=== PATIENT | male | born 1995 | race Two or more races ===

== ENCOUNTER 2020-05-11 19:29 | Emergency (ER) | payer OTHER ==
[~2020-05-11] VITALS: Ht 177.8 cm; Wt 75.0 kg
[2020-05-11 19:57] VITALS: BP 151/80
[2020-05-11] MEDS ORDERED: LIDOCAINE 2% 20 ML VIAL. IJ ONE (20:15)
[2020-05-11] MEDS ORDERED: DIPH,PERTUSS(ACELL),TET VAC/PF 0.5 ML SYRINGE. VAX IM ONE (20:15)
[2020-05-11] MEDS ORDERED: BACITRACIN ZINC TOPICAL OINT PACKET. TP ONE (20:30)
[2020-05-11] MEDS ORDERED: CEPH-281 PO (20:30)
--- NOTE | 2020-05-11 20:30 | PHYS DOC ---
Past History Past Medical History: No Pertinent History Past Surgical History: No Surgical History Alcohol Use: Occasionally General Adult EDM: Chief Complaint: LACERATION/AVULSION HPI: HPI: Patient is a 25 year old male who presents for evaluation of a cut just lateral to his left eye. Patient states that he was at work when he was hit in the back of the head with a bar. That caused his face to move forward and he was wearing safety glasses. His skin was cut where his safety glasses caught his skin. There is no other reported injuries. He has no actual eyeball injury itself. He has normal vision to the affected eye. Bleeding controlled prior to arrival. There is a small star-shaped laceration to that site. Patient's tetanus shot is not up-to-date. Patient was very briefly dazed after the incident and had nausea. All symptoms have resolved. Patient did not lose consciousness. There is no significant bump to the back of his head. There is minimal swelling around the laceration site Review of Systems: Review of Systems: Constitutional: Denies fever or chills Eyes: Denies change in visual acuity HENT: Denies nasal congestion or sore throat Respiratory: Denies cough or shortness of breath Cardiovascular: Denies chest pain or edema GI: Denies abdominal pain, nausea, vomiting, bloody stools or diarrhea : Denies dysuria Musculoskeletal: Denies back pain or joint pain Integument: Denies rash Neurologic: minimal headache, no focal weakness or sensory changes Endocrine: Denies polyuria or polydipsia Lymphatic: Denies swollen glands Psychiatric: Denies depression or anxiety Heart Score: Risk Factors: Risk Factors: DM, Current or recent (<one month) smoker, HTN, HLP, family history of CAD, obesity. Risk Scores: Score 0 - 3: 2.5% MACE over next 6 weeks - Discharge Home Score 4 - 6: 20.3% MACE over next 6 weeks - Admit for Clinical Observation Score 7 - 10: 72.7% MACE over next 6 weeks - Early Invasive Strategies Current Medications: Current Meds: Current Medications Medications (Trade) Dose Ordered Sig/Shawna Start Time Stop Time Status Last Admin Dose Admin Diphtheria/ Pertussis/Tetanus Vacc (ADACEL TDap SYRINGE) 0.5 ml ONCE ONCE 05/11/20 20:15 05/11/20 20:16 DC 05/11/20 20:11 0.5 ML Lidocaine HCl 20 ml 1X ONCE 05/11/20 20:15 05/11/20 20:16 DC 05/11/20 20:10 20 ML Allergies: Allergies: Allergies Coded Allergies Type Severity Reaction Last Updated Verified No Known Drug Allergies 05/11/20 No Physical Exam: PE: Constitutional: Well developed, well nourished, mild acute distress, non-toxic appearance. [] HENT: Normocephalic, less than 1 cm size star-shaped laceration just lateral to the left eye, no involvement of the globe itself, bilateral external ears normal, oropharynx moist, no oral exudates, nose normal. [] Eyes: PERRL, EOMI, conjunctiva normal, no discharge, no hyphema, vision normal in the affected eye. [] Neck: Normal range of motion, no tenderness, supple, no stridor. [] Cardiovascular:Heart rate regular rhythm, no murmur [] Lungs & Thorax: Bilateral breath sounds clear to auscultation [] Abdomen: Bowel sounds normal, soft, no tenderness, no masses, no pulsatile masses. [] Skin: Warm, dry, no erythema, no rash. [] Back: No tenderness, no CVA tenderness. [] Extremities: No tenderness, no cyanosis, ROM intact, no edema. [] Neurologic: Alert and oriented X 3, normal motor function, normal sensory fun ction, no focal deficits noted. [] Psychologic: Affect normal, judgement normal, mood normal. [] Current Patient Data: Vital Signs: Vital Signs Date Time Temp Pulse Resp B/P (MAP) Pulse Ox O2 Delivery O2 Flow Rate FiO2 05/11/20 19:57 98.0 99 20 151/80 (103) 98 Room Air EKG: EKG: [] Radiology/Procedures: Radiology/Procedures: [] Course & Med Decision Making: Course & Med Decision Making Pertinent Labs and Imaging studies reviewed. (See chart for details) Wound cleaned and dressed, triple antibiotic applied before discharge. Prescription for cephalexin given. Wound care and detailed head injury directions given. 3 sutures placed Angy Disclaimer: Angy Disclaimer: This electronic medical record was generated, in whole or in part, using a voice recognition dictation system. Departure Departure: Impression: Primary Impression: Facial laceration Qualified Codes: S01.81XA - Laceration without foreign body of other part of head, initial encounter Additional Impression: Head contusion Disposition: 01 HOME/RESIDENCE PRIOR TO ADM Condition: STABLE Referrals: PCP,NO (PCP) Patient Instructions: Head Injury, Adult, [id number], Sutured Wound Care Additional Instructions: Sutures out in 6 to 7 days, keep area clean and dry. Apply triple antibiotic daily to wound. Take antibiotic as directed Scripts Cephalexin (CEPHALEXIN) 250 Mg Capsule 1 CAP PO QID for skin infection for 5 Days, #20 CAP Prov: ALLAN GUTIERREZ DO 05/11/20 Justification of Admission: Justification of Admission: Justification of Admission Dx: N/A Laceration/Wound Repair Laceration/Wound Repair : Wound Location: face Wound's Depth, Shape: superficial, stellate Wound Length (cm): 1 Wound Explored: clean Irrigated w/ Saline (ccs): 10 Betadine Prep?: No Anesthesia: 1% Lidocaine Volume Anesthetic (ccs): 1 Wound Debrided: minimal Wound Repaired With: sutures Suture Size/Type: 5:0 Number of Sutures: 3 Sterile Dressing Applied?: Yes Splint Applied?: No Sling Applied?: No ALLAN GUTIERREZ DO May 11, 2020 20:30
== END 2020-05-11 20:42 | disposition home or self-care (01) ==
LOC: ER 19:29
DX: S01.81XA Laceration without foreign body of other part of head, initial encounter (principal); R51 Headache; W25.XXXA Contact with sharp glass, initial encounter; Y93.89 Activity, other specified; Y92.89 Other specified places as the place of occurrence of the external cause; Y99.8 Other external cause status
CPT/HCPCS: 12011; 90471; 90715; 99283; J2001